=== PATIENT | male | born 1990 | race African-American/Black ===

== ENCOUNTER 2020-09-01 16:45 | Emergency (ER) | payer OTHER ==
[2020-09-01 16:56] VITALS: BMI 31.7
[2020-09-01] MEDS ORDERED: ACETAMINOPHEN 325 MG TABLET (FP) PO ONE (17:03)
[2020-09-01] MEDS ORDERED: DIPHTH,PERTUSS(ACELL),TET 0.5 ML DISP.SYRIN IM ONE ×2 (17:04→17:10)
[2020-09-01] MEDS ORDERED: ACETAMINOPHEN 325 MG TABLET (FP) ONE (17:10)
[2020-09-01 17:45] LABS: BASO % 0.6 % (0-2.0); EOS % 2.5 % (0-4.5); HEMATOCRIT 47.3 % (35.4-49); HEMOGLOBIN 15.7 GM/dL (11.7-16.9); LYMPH % 41.6 % (8-40); MCH 30.2 pg (25.7-33.7); MCHC 33.1 g/dl (32.0-35.9); MEAN CELL VOLUME 91.2 fl (80-96); MEAN PLT VOLUME 8.5 fl (7.5-11.1); MONO % 8.6 % (3.8-10.2); NEUT % 46.7 % (42.8-82.8); PLATELET COUNT 302 10^3/uL (134-434); RBC 5.19 M/mm3 (4.00-5.60); WHITE BLOOD COUNT 11.6 K/mm3 (4.0-10.0)
[2020-09-01 17:53] LABS: INR 0.95 (0.83-1.09); PROTHROMBIN TIME (PATIENT) 11.7 SEC (9.7-13.0)
[2020-09-01 17:56] LABS: ACTIVATED PTT 25.3 SECONDS (25.2-36.5)
[2020-09-01 18:04] LABS: CALCIUM 9.1 mg/dL (8.5-10.1)
[2020-09-01 18:05] LABS: ALBUMIN 4.1 g/dl (3.4-5.0); BLOOD UREA NITROGEN 16.1 mg/dL (7-18)
[2020-09-01 18:08] LABS: CREATININE 1.1 mg/dL (0.55-1.3)
[2020-09-01 18:10] LABS: BILIRUBIN,TOTAL 0.3 mg/dL (0.2-1); TOT PROT 7.8 g/dl (6.4-8.2)
[2020-09-01 18:16] VITALS: BP 127/89; PULSE 70; TEMP 99.3
== END 2020-09-01 20:05 | disposition home or self-care (01) ==
LOC: JER 16:45
PROC: 3E0234Z Introduction of Serum, Toxoid and Vaccine into Muscle, Percutaneous Approach (ICD-10-PCS; principal; 2020-09-01)
DX: S00.03XA Contusion of scalp, initial encounter (principal); S09.90XA Unspecified injury of head, initial encounter; S63.502A Unspecified sprain of left wrist, initial encounter
CPT/HCPCS: 36415; 70450-TC; 71045-TC-FY; 72125-TC; 72170-TC-FY; 73110-TC-LT-FY; 73130-TC-LT-FY; 76604; 76705-TC; 80053; 85025; 85610; 85730; 90715; 93005; 93010; 93308; 99285-25